=== PATIENT | female | born 1985 | race African-American/Black ===

== ENCOUNTER 2021-10-19 09:38 | Emergency (ER) | payer OTHER ==
[~2021-10-19] VITALS: Ht 165.1 cm; Wt 117.9 kg
[2021-10-19] MEDS ORDERED: MEDROLDOSEPACK PO (12:34)
[2021-10-19] MEDS ORDERED: FLEXERIL PO (12:34)
[2021-10-19] MEDS ORDERED: TESSALON PERLE100 MG PO (12:35)
[2021-10-19 12:39] VITALS: BP 150/61
== END 2021-10-19 12:40 | disposition home or self-care (01) ==
LOC: M.ERS 09:38
DX: S16.1XXA Strain of muscle, fascia and tendon at neck level, initial encounter (principal); Z20.822 Contact with and (suspected) exposure to COVID-19; J06.9 Acute upper respiratory infection, unspecified; M25.511 Pain in right shoulder; J45.909 Unspecified asthma, uncomplicated; Z91.040 Latex allergy status; Z88.2 Allergy status to sulfonamides; V49.9XXA Car occupant (driver) (passenger) injured in unspecified traffic accident, initial encounter; Y93.I9 Activity, other involving external motion; Y92.488 Other paved roadways as the place of occurrence of the external cause; Y99.8 Other external cause status